=== PATIENT | female | born 1965 | race African-American/Black ===

== ENCOUNTER 2019-03-27 20:48 | Emergency (ER) | payer OTHER, SELFPAY ==
[2019-03-27] MEDS ORDERED: Albuterol Sulfate 2.5 mg/3 ml Neb ONE (21:12)
[2019-03-27] MEDS ORDERED: predniSONE 20 MG TAB ONE (21:30)
--- NOTE | 2019-03-27 21:31 | RAD ---
Chest one view HISTORY: Dyspnea. COMPARISON: 12/15/2014. FINDINGS: Cardiac silhouette is magnified and upper limits of normal in size. Pulmonary vasculature a lso upper limits of normal. Mediastinum is midline. No confluent airspace consolidation or evidence of pneumothorax. IMPRESSION: No active cardiopulmonary abnormalities are demonstrated.
== END 2019-03-27 23:21 | disposition home or self-care (01) ==
LOC: ERS 20:48
DX: J45.901 Unspecified asthma with (acute) exacerbation (principal); I10 Essential (primary) hypertension; M17.0 Bilateral primary osteoarthritis of knee; F17.210 Nicotine dependence, cigarettes, uncomplicated; Z79.899 Other long term (current) drug therapy
CPT/HCPCS: 71045; 93005; 94644; J7512; J7611